=== PATIENT | male | born 1980 | race Caucasian/White ===

== ENCOUNTER 2025-01-04 11:31 | Outpatient (AMB) | payer BC, SELFPAY ==
--- NOTE | 2025-01-04 11:34 | MHC.PC.OV ---
Vital Signs 01/04/25 11:37 Height 6 ft 3 in Weight 241 lb BMI 30.1 BP 116/68 Blood Pressure Location Rt brachial Pulse 92 Pulse Source Pulse Oximeter Temp 97.7 F Pulse Oximetry (%) 96 Intake Visit Reasons: persistent dizziness Allergies No Known Allergies Allergy (Verified 01/04/25 12:10) Medication List - Last Reconciled 01/04/25 by Christine Barker PA-C fluoxetine 20 mg PO DAILY methylphenidate HCl LA (Ritalin LA) 20 mg PO DAILY terbinafine HCl 250 mg PO DAILY PFSH Medical History Obesity (BMI 30-39.9) Onychomycosis Obstructive sleep apnea Basal cell carcinoma IBS (irritable bowel syndrome) ADHD Anxiety disorder Right shoulder pain Neck pain Dizziness Surgical History History of colonoscopy (~01/13/19) History of appendectomy Questionnaire PHQ-9 Over the last 2 weeks, how often have you been bothered by any of the following problems? 1. Little interest or pleasure in doing things: not at all 2. Feeling down, depressed, or hopeless: not at all 3. Trouble falling or staying asleep, or sleeping too much: not at all 4. Feeling tired or having little energy: not at all 5. Poor appetite or overeating: not at all 6. Feeling bad about yourself - or that you are a failure or have let yourself or your family down: not at all 7. Trouble concentrating on things, such as reading the newspaper or watching television: not at all 8. Moving or speaking so slowly that other people could have noticed. Or the opposite - being so fidgety or restless that you have been moving around a lot more than usual: not at all 9. Thoughts that you would be better off or of hurting yourself in some way: not at all Total score: 0 Depression Screening Interpretation: Negative Depression Screening Done: Yes 44221 - PHQ-9 Billing: Yes Source: Developed by Drs. Eugene Hart, Mindy Welch, Dalton Fragoso and colleagues, with an educational mckenzie from [employer]. Thrive Questionnaire Date Thrive assessed: 01/04/25 I am a: Patient What is your living situation today?: I have a steady place to live Within the past 12 months, did the food you bought not last and you didn't have the money to get more?: Never true Within the past 12 months, did you worry whether your food would run out before you got money to buy more?: Never true Do you have trouble paying for medicines?: No Do you have trouble getting transportation to medical appointments?: No Do you have trouble paying your heating and electricity bill?: No Do you have trouble taking care of your child, family member or friend?: No Do you have trouble with day-to-day activities such as bathing, preparing meals, shopping, managing finances, etc.?: No Are you currently unemployed and looking for a job?: No Are you interested in more education?: No THRIVE Score: 0 AUDIT C Alcohol Use Questionnaire (AUDIT-C) 1. How often do you have a drink containing alcohol?: 2-4 times a month 2. How many drinks containing alcohol do you have on a typical day when you are drinking?: 1 or 2 3. How often do you have six or more drinks on one occasion?: Less than monthly Total Score: 3 Score Reviewed/Action Taken: No APARNA-7 AMB Questionnaire APARNA-7 Date APARNA - 7 assessed: 01/04/25 Feeling nervous, anxious, or on edge: 0 = Not at all Not being able to stop or control worryin = Not at all Worrying too much about different things: 0 = Not at all Trouble relaxin = Not at all Being so restless that it is hard to sit still: 0 = Not at all Becoming easily annoyed or irritable: 0 = Not at all Feeling afraid as if something awful might happen: 0 = Not at all Total APARNA-7 score (0-4 normal; 5-9 mild; 10-14 moderate; 15-21 severe): 0 Source: Developed by Drs. Eugene Hart, Mindy Welch, Dalton Fragoso and colleagues, with an educational mckenzie from [employer] APARNA-7 Assessment Billing APARNA-7 Assessment Tool: APARNA-7 Assessment 72135 Physical exam (Primary Care) Vital Signs: Last Vital Signs Temp 97.7 F 01/04/25 11:37 Pulse 92 01/04/25 11:37 BP 116/68 01/04/25 11:37 Pulse Ox 96 01/04/25 11:37 Care Plan Goal for BP management: <130/80 at Goal BMI result Body Mass Index 30.1 BMI Assessment/Plan discussion: High BMI High, discussed plan: lifestyle, weight reduction, dietary, physical activity and alcohol moderation PHQ-9: PHQ-9 Score PHQ-9: Total score 0 01/04/25 14:23 Depression Screening Interpretation: Negative Thrive Assessment: Date of Thrive Assessment Date Thrive assessed 01/04/25 01/04/25 11:53 Coding Level of Care Code Est Pt Level 4 (32310) Complex EM visit Add On G2211 Diagnoses Dizziness R42 Neck pain M54.2 Right shoulder pain M25.511 ADHD F90.9 Anxiety disorder F41.9 Obstructive sleep apnea G47.33 Basal cell carcinoma C44.91 IBS (irritable bowel syndrome) K58.9 Onychomycosis B35.1 Obesity (BMI 30-39.9) E66.9 Additional Codes APARNA-7 Assessment Billing - APARNA-7 Assessment Tool: APARNA-7 Assessment 67907 ([id number]) PHQ-9 - 15038 - PHQ-9 Billing: Yes ([id number]) Assessment & Plan Assessment & Plan (1) Dizziness: Code(s): R42 - Dizziness and giddiness Category: Medical Plan: Initiating CT brain scan and carotid ultrasound to assess intracranial or vascular causes. Suspected orthostatic hypotension, management includes fluid increase, potential use of meclizine, and checks for postural blood pressure change. Neurology follow-up scheduled. Will also schedule PT for possible vertigo. Patient noted to have a normal neuro exam at this time. No focal deficits are noted. Condition is chronic and stable continue to monitor and re-evaluate. (2) Neck pain: Code(s): M54.2 - Cervicalgia Category: Medical Plan: Will refer to PT for chronic neck and right shoulder pain/muscular strains. Condition is chronic and stable continue to monitor. (3) Right shoulder pain: Code(s): M25.511 - Pain in right shoulder Category: Medical Plan: Will refer to PT for chronic neck and right shoulder pain/muscular strains. Condition is chronic and stable continue to monitor. (4) ADHD: Code(s): F90.9 - Attention-deficit hyperactivity disorder, unspecified type Category: Medical Plan: Patient to continue Ritalin 20 mg daily. Condition is chronic and stable continue to monitor. (5) Anxiety disorder: Code(s): F41.9 - Anxiety disorder, unspecified Category: Medical Plan: Maintaining current anxiety/depression therapy with fluoxetine, stable psychiatric status acknowledged. (6) Obstructive sleep apnea: Comment: On CPAP Code(s): G47.33 - Obstructive sleep apnea (adult) (pediatric) Category: Medical Plan: Condition is chronic and stable patient to continue CPAP. (7) Basal cell carcinoma: Code(s): C44.91 - Basal cell carcinoma of skin, unspecified Category: Medical Plan: Condition is chronic and stable patient denies any skin related complaints at this time. (8) IBS (irritable bowel syndrome): Code(s): K58.9 - Irritable bowel syndrome, unspecified Category: Medical Plan: Condition is chronic and stable patient denies any GI related complaints at this time. (9) Onychomycosis: Code(s): B35.1 - Tinea unguium Category: Medical Plan: Continuing terbinafine therapy for another two months as planned. Review any adverse effects before finalizing treatment completion. (10) Obesity (BMI 30-39.9): Code(s): E66.9 - Obesity, unspecified Category: Medical Plan: Patient to improve his diet and exercise regimen. Condition is chronic and stable continue to monitor. Plan Plan Patient was informed and verbally consented to the use of an ambient scribe for clinic note documentation during this visit. 1. Psychogenic Disorder Anxiety/Depression Maintaining current anxiety/depression therapy with fluoxetine, stable psychiatric status acknowledged. 2. Dizziness Initiating CT brain scan and carotid ultrasound to assess intracranial or vascular causes. Suspected orthostatic hypotension, management includes fluid increase, potential use of meclizine, and checks for postural blood pressure change. Neurology follow-up scheduled. 3. Bursted Appendix History Of Reviewing past appendicitis surgical recovery with no acute concerns noted. 4. Onychomycosis Continuing terbinafine therapy for another two months as planned. Review any adverse effects before finalizing treatment completion. 5. Orthostatic Hypotension Suspected Monitoring blood pressure variations, considering dietary, fluid adjustments. Home blood pressure measures suggested. Further review post-evaluation to confirm orthostatic presentation. Discussion Notes I discussed the likely diagnosis of dizziness possibly linked to orthostatic hypotension with the patient, explaining the need for specific diagnostic imaging such as a brain CT and a carotid ultrasound. I advised on increasing fluid intake and potential use of meclizine for symptom relief. We explored physical therapy options as an ongoing intervention to manage dizziness, discussing the associated benefit of maneuvers aimed at positioning-based symptom limitation. Risks of inadequate intervention include continued dizziness and the potential impact on daily tasks and care responsibility for his child. Follow-ups will be scheduled two to three months hence, ensuring updates through planned diagnostic test reviews and neurological evaluations. I considered lifestyle factors such as fluid and salt intake relevant to assessing orthostatic effects, offering guidance on home monitoring with personal blood pressure devices to analyze positional blood pressure variations. Orders: Orders Complete Blood Count Auto Diff 01/04/25. - Encounter for general adult medical examination without abnormal findings Erythrocyte Sedimentation Rate 01/04/25. - Encounter for general adult medical examination without abnormal findings C Reactive Protein 01/04/25. - Encounter for general adult medical examination without abnormal findings Lipid Panel 01/04/25. - Encounter for general adult medical examination without abnormal findings Vitamin A 01/04/25. - Encounter for general adult medical examination without abnormal findings Vitamin B12 and Folate 01/04/25. - Encounter for general adult medical examination without abnormal findings Zinc 01/04/25. - Encounter for general adult medical examination without abnormal findings PSA,Total (Free>4and<10) 01/04/25 Z. - Encounter for general adult medical examination without abnormal findings CT head/brain wo IV con 01/04/25 R42 - Dizziness and giddiness US carotid duplex BI 01/04/25 R42 - Dizziness and giddiness PT Evaluation and Treatment 01/04/25 M25.511 - Pain in right shoulder, M54.2 - Cervicalgia, R42 - Dizziness and giddiness Comprehensive [place]. Panel Fast 01/04/25 Z. - Encounter for general adult medical examination without abnormal findings Hemoglobin A1c 01/04/25 Z. - Encounter for general adult medical examination without abnormal findings Magnesium 01/04/25 Z. - Encounter for general adult medical examination without abnormal findings Liver Panel 01/04/25. - Encounter for general adult medical examination without abnormal findings TSH reflex Free T4 01/04/25 Z00.00 - Encounter for general adult medical examination without abnormal findings Vitamin D 25-OH Total 01/04/25 Z00.00 - Encounter for general adult medical examination without abnormal findings Vitamin B1 01/04/25 Z00.00 - Encounter for general adult medical examination without abnormal findings Parathyroid Hormone Intact 01/04/25 Z00.00 - Encounter for general adult medical examination without abnormal findings Lyme IgG/IgM w/reflex to WB 01/04/25 Z00.00 - Encounter for general adult medical examination without abnormal findings Referrals Neurology Referral R42 - Dizziness and giddiness Patient Instructions: Patient Instructions - Increase daily fluid intake to potentially alleviate dizziness. - Use a home blood pressure monitor to check blood pressure when seated and standing; note any significant changes. - Plan for a CT scan and carotid ultrasound as discussed; await appointment calls. - Continue terbinafine therapy for toenail fungus as currently prescribed. - Maintain current fluoxetine regime for anxiety/depression. - Watch for any symptoms like persistent dizziness, visual changes, or weakness; call 911 if severe symptoms emerge. - Schedule a follow-up appointment for 2-3 months from now to reassess symptoms and outcomes from current tests and interventions. Scribe Plan - Not visible on output: History of Present Illness The patient is a 44-year-old male presenting with dizziness experienced upon standing. Symptoms have been present since late spring 2023, primarily manifesting as transient dizziness lasting approximately one minute after transitioning from a sitting or lying position. Factors such as prolonged inactivity and dehydration exacerbate these episodes, with caffeine noted to intensify the condition. The patient expresses concern over functional implications, notably in the context of supervising his young child, prompting current re-evaluation. Patient reports he discussed this with his prior PCP Dr. Archibald who referred him to ENT for a possible cause of dizziness with cerumen impactions. Despite initial earwax treatment, symptoms have persisted. The patient denies associated headache, weakness, visual alterations, or unilateral numbness. He manages psychogenic disturbance with fluoxetine and is treated for onychomycosis with terbinafine. A history of appendicitis with rupture in August 2022 was noted. Previous blood work indicated normal thyroid and sodium levels. Social History - with a saamy-zwuw-bej son. - Reports social stability with no immediate housing or employment issues affecting health. Review of Systems - Cardiovascular: Denies weakness, heart racing - Neurological: Denies headaches, changes in vision, numbness - Psychological: History of anxiety/depression, current stable treatment with fluoxetine Physical Exam Appearance: Alert. Oriented X3. No acute distress. Head: Normal external exam. Normocephalic. Atraumatic. Eyes: Pupils are equal, round, and reactive to light. Extraocular movements intact. Conjunctiva and sclera normal. Eyelids normal. Ears: External auditory canal normal. Tympanic membranes normal. Ears look good. Throat: Pharynx normal. Uvula midline. Moist mucous membranes. Neck: Normal inspection. Neck supple. Full range of motion. No adenopathy. Thyroid Normal. No meningeal signs. No neck mass noted. Sore neck noted. Cardiovascular: Normal heart rate and rhythm. Heart sound normal. No murmurs noted. Pulses normal throughout. Blood pressure approximately 130/80. Respiratory: No respiratory distress. Painless inspiration. Breath sounds normal. No wheezes/rales/rhonchi noted. Chest nontender. No accessory muscle usage noted or decreased air movement noted. Abdomen: Soft and nontender. Bowel sounds normal in all 4 quadrants. No distention noted. No organomegaly noted. No visible injury noted. Back: No costovertebral angle tenderness. Full range of motion noted. Skin: Skin warm and dry. Normal skin color. Normal skin turgor. No rashes/lesions/lacerations noted. Extremities: No lower extremity edema. Extremities exhibit normal range of motion. Extremities nontender. Neuro: Oriented X 3. No motor deficit. No sensory deficit. Reflexes normal. No dizziness noted when sitting up. Results Labs: 11/2024 - CBC normal - Chem- Normal - Sodium: Normal - Thyroid function: Normal - Vitamin D: Normal Tests and Diagnostics: - Detailed blood work in September 2024 showed normal results. - Plan for CT scan of the brain and carotid artery ultrasound
[2025-01-04 11:37] VITALS: BP 116/68; PULSE 92; TEMP 36.5; O2SAT 96; BMI 30.1
--- OUTSIDE RECORDS SUMMARY | 2025-01-04 13:08 | XMS_ITS | Patient Health Record ---
Author Organization [facility] Address [address] [place] [address] Care Team Providers Care Case Liner Name Role Phone Eugene Archibald MD Primary Care Provider Unavail able Abimbola Escalera Unavailable [phone] Allergies No Known Allergies Reason For Referral No Information Medications Medication SIG (Take, Route, Frequency, Duration) Notes Start Date End Date Status Ciclopirox Olamine 0.77 % 1 application to affected area Externally to feet Twice a day for 30 days Active LamISIL 250 MG 1 tablet Orally Once a day for 30 days Active busPIRone HCl 15 MG (Prior Auth#:[id number]) Oral for 30 Active Ritalin LA Active Ketoconazole 2 % 1 application Core Winder ally Once a day for 30 days Active buPROPion HCl ER (XL) 300 MG (Prior Auth#:[id number]) Oral for 60 Active Methylphenidate HCl ER (LA) 10 MG (Schedule II Drug) (Prior Auth#:[id number]) Oral for 30 Active Immunizations Vaccine Route Administration Date Status Comme nts COVID-19 Moderna Vaccine Unknown 02/10/2021 Administere d 1st Dose: 01/13/2021 Social History Tobacco Use: Social History Observation Description Date Details (start date - stop date) Never Smoker NA - NA Tobacco Use/Smoking Question Answer Notes Are you a: nonsmoker Additional Findings: Tobacco Non-User Current no n-smoker Alcohol Screen Question Answer Notes Did you have a drink containing alcohol in the p ast year? Yes Points 0 Interpretation Negative Tobacco use other than smoking: Question Answer Notes Are you an other tobacco user? No Plan Of Treatment Pending Test Test Name Order Date *Liver Function Test (LFT) 05/19/2021 *Liver Function Test (LFT) 07/21/2021 Insurance Providers Payer Name Payer Address Payer Phone Subscriber Number Group Number Insured Name Patient Relationship to Insured Coverage Start Date Coverage End Date [facility] [address] [place] [address] [id number] Self - patient is the insured Medical (General) History Medical History History ICD Code Anxiety Depression Chicken pox Surgical History Surgery Date(Month/Year) skin cancer removal 04/2018/04/2019
--- OUTSIDE RECORDS SUMMARY | 2025-01-04 13:08 | XMS_ITS | Encounter Summary ---
Author Organization [facility], Address [address] [place] [address] Phone Care Team Providers Care Stabilizing Machine Operator Name Role Phone Eugene Archibald DO Primary Care Provider Encounter Details Date Type Department Care Team (Late st Contact Info) Description 02/19/2023 Documentation Only [facility], - [address] [place] [phone] Eugene Archibald DO [address] [place], [place] Social History Tobacco Use Types Packs/Day Years Used Date Smoking Tobacco: Never Assessed Sex and Gender Information Value Date Recorded Sex Assigned at Not on file Legal Sex Male 2:20 PM EDT Gender Identity Not on file Sexual Orientation Not on file documented as of this encounter Plan of Treatment Not on file documented as of this encounter Visit Diagnoses Not on filedocumented in this encounter Care Teams Stabilizing Machine Operator Relationship Specialty Start Date End Date Eugene Archibald DO [address] [place] [address] PCP - General Internal Medicine 02/19/23 documented as of this encounter
--- OUTSIDE RECORDS SUMMARY | 2025-01-04 13:08 | XMS_ITS | Encounter Summary ---
Author Organization [facility], Address [address] [place] [address] Phone Care Team Providers Care Organizational Effectiveness Consultant Name Role Phone Eugene Archibald DO Primary Care Provider Encounter Details Date Type Department Care Team (Late st Contact Info) Description 02/19/2023 Documentation Only [facility], - [address] [facility] [address] [place] [phone] Willie Kumar MD [address] [facility] [address] [place] [phone] Social History Tobacco Use Types Packs/Day Years [...] on filedocumented in this encounter Care Teams Organizational Effectiveness Consultant Relationship Specialty Start Date End Date Eugene Archibald DO [address] [place] [address] PCP - General Internal Medicine 02/19/23 documented as of this encounter
--- OUTSIDE RECORDS SUMMARY | 2025-01-04 13:08 | XMS_ITS | Clinical Summary ---
Author Organization [facility], Address [address] [place] [address] Phone Care Team Providers Care Fitness Center Attendant Name Role Phone Eugene Archibald DO Primary Care Provider [phone] Allergies No known active allergies Medications tamsulosin (FLOMAX) 0.4 MG 24 hr capsule 06/05/2023 Activ e methylphenidate LA (RITALIN LA) 20 MG 24 hr capsule 06/03/2023 Active Probiotic Product (PROBIOTIC DAILY PO) Take by mouth Active Active Problems Problem Noted Date Diagnosed Date Hematuria 06/06/2023 Prostatitis 06/06/2023 Microscopic hematuria 06/06/2023 Immunizations Name Administration Dates Next Due H1N1 All Forms 11/16/2009 Influenza, Quadrivalent, Pre servative Free 07/15/2022,08/05/2021,08/05/2020,2018 Influenza, Quadrivalent, Wit h Preservative 08/12/2018 Influenza, Unspecified 12/04/2013 Moderna SARS-COV-2 08/27/2021,02/10/2021, 021 SARS-CoV-2, Unspecified 07/15/2022 Td 06/14/2011 Tdap 08/19/2021 Social History Tobacco Use Types Packs/Day Years Used Date Smoking Tobacco: Never Assessed Sex and Gender Information Value Date Recorded Sex Assigned at Not on file Legal Sex Male 2:20 PM EDT Gender Identity Not on file Sexual Orientation Not on file Plan of Treatment Health Maintenance Due Date Last Done Comments Pneumococcal Vaccine: Pediat rics (0 to 5 Years) and At-Risk Patients (6 to 64 Years) (1 of 2 - PCV) 1984 Hepatitis B Vaccine (1 of 3 - 19+ 3-dose series) 1997 Influenza Vaccine (#1) 2024 2, 08/05/2021, 08/05/2020, Additional history exists Insurance Care Teams Fitness Center Attendant Relationship Specialty Start Date End Date Eugene Archibald DO [address] [place] [address] PCP - General Internal Medicine 02/19/23
== END 2025-01-04 12:05 | disposition home or self-care (01) ==
LOC: HO.HMCSH 11:31
PROVIDERS: PCP Internal Medicine; Visit Provider Physician Assistant Medical
DX: R42 Dizziness and giddiness (principal); M54.2 Cervicalgia; M25.511 Pain in right shoulder; F90.9 Attention-deficit hyperactivity disorder, unspecified type; F41.9 Anxiety disorder, unspecified; G47.33 Obstructive sleep apnea (adult) (pediatric); C44.91 Basal cell carcinoma of skin, unspecified; K58.9 Irritable bowel syndrome, unspecified; B35.1 Tinea unguium; E66.9 Obesity, unspecified

== ENCOUNTER → 2025-01-04 11:31 | Outpatient (BNVA) | payer BC, SELFPAY | PROVIDERS: PCP Internal Medicine; Visit Provider Physician Assistant Medical | DX: R42 Dizziness and giddiness (principal); M54.2 Cervicalgia; M25.511 Pain in right shoulder; F90.9 Attention-deficit hyperactivity disorder, unspecified type; F41.9 Anxiety disorder, unspecified; G47.33 Obstructive sleep apnea (adult) (pediatric); C44.91 Basal cell carcinoma of skin, unspecified; K58.9 Irritable bowel syndrome, unspecified; B35.1 Tinea unguium; E66.9 Obesity, unspecified; Z68.30 Body mass index [BMI] 30.0-30.9, adult; Z79.899 Other long term (current) drug therapy; Z99.89 Dependence on other enabling machines and devices | CPT/HCPCS: 96127 ==

== ENCOUNTER 2025-02-12 15:31 | Outpatient (REF) | payer BC, SELFPAY ==
--- NOTE | ~2025-02-12 | US_ITS ---
EXAMINATION: US EXTRACRANIAL CAROTID DUPLEX, BILATERAL CLINICAL INFORMATION: Dizziness and giddiness COMPARISON: None available. TECHNIQUE: Real-time ultrasound and Doppler techniques (integrating B-mode 2-D vascular images, Doppler spectral analysis and color-flow Doppler imaging) were utilized to interrogate the extracranial carotid arteries, the vertebral arteries and proximal subclavian arteries bilaterally. The degree of stenosis is determined by criteria similar to NASCET. FINDINGS: Right Side: 1. There is no atherosclerotic plaque seen in the bifurcation/proximal ICA region. 2. The common carotid artery PSV proximally is 99 cm/s and distally 94 cm/s. 3. The proximal internal carotid artery velocities are 53 cm/s systolic and 19 cm/s diastolic. 4. The proximal external carotid artery PSV is 99 cm/s. 5. The vertebral artery shows antegrade flow. 6. The subclavian artery waveforms are normal. Left Side: 1. There is no atherosclerotic plaque seen in the bifurcation/proximal ICA region. 2. The common carotid artery PSV proximally is 86 cm/s and distally 92 cm/s. 3. The proximal internal carotid artery velocities are 124 cm/s systolic and 34 cm/s diastolic. 4. The proximal external carotid artery PSV is 59 cm/s. 5. The vertebral artery shows antegrade flow. 6. The subclavian artery waveforms are normal. US/US carotid duplex BI IMPRESSION: 1. RIGHT: No hemodynamically significant stenosis. 2. LEFT: No hemodynamically significant stenosis. 3. Antegrade flow in both vertebral arteries. Electronically signed by: Marcelo Mcbride MD 02/15/2025 07:09 AM EDT
--- OUTSIDE RECORDS SUMMARY | 2025-02-12 15:34 | XMS_ITS | Encounter Summary ---
Author Organization [facility], Address [address] [place] [address] Phone Care Team Providers Care Senior Accounting Analyst Name Role Phone Eugene Archibald DO Primary Care Provider Encounter Details Date Type Department Care Team (Late st Contact Info) Description 02/19/2023 Documentation Only [facility], - [place] [address] [place] [phone] Eugene Archibald DO [address] [place], [place] Social History Tobacco Use Types Packs/Day [...] on filedocumented in this encounter Care Teams Senior Accounting Analyst Relationship Specialty Start Date End Date Eugene Archibald DO [address] [place] [address] PCP - General Internal Medicine 02/19/23 documented as of this encounter
--- OUTSIDE RECORDS SUMMARY | 2025-02-12 15:34 | XMS_ITS | Encounter Summary ---
Author Organization [facility], Address [address] [place] [address] Phone Care Team Providers Care Rock Dust Sprayer Name Role Phone Eugene Archibald DO Primary Care Provider Encounter Details Date Type Department Care Team (Late st Contact Info) Description 02/19/2023 Documentation Only [facility], - [address] [facility] [address] [place] [phone] Willie Kumar MD [address] [facility] [address] [place] [phone] Social History Tobacco Use Types Packs/Day Years [...] on filedocumented in this encounter Care Teams Rock Dust Sprayer Relationship Specialty Start Date End Date Eugene Archibald DO [address] [place] [address] PCP - General Internal Medicine 02/19/23 documented as of this encounter
--- OUTSIDE RECORDS SUMMARY | 2025-02-12 15:34 | XMS_ITS | Clinical Summary ---
Author Organization [facility], Address [address] [place] [address] Phone Care Team Providers Care Director Of Human Resources Name Role Phone Eugene Archibald DO Primary Care Provider [phone] Allergies No known active allergies Medications tamsulosin (FLOMAX) 0.4 MG 24 hr capsule 06/05/2023 Activ e methylphenidate LA (RITALIN LA) 20 MG 24 hr capsule 06/03/2023 Active Probiotic Product (PROBIOTIC DAILY PO) Take by mouth Active Active Problems Problem Noted Date Diagnosed Date Hematuria 06/06/2023 Prostatitis 06/06/2023 Microscopic hematuria 06/06/2023 Immunizations Immunization Administration Dates Next Due H1N1 All Forms [...] Health Maintenance Due Date Last Done Comments Hepatitis B Vaccine (1 of 3 - 19+ 3-dose series) 1997 Pneumococcal Vaccine: Peds ( 0 to 5 Years) and At-Risk Patients (6 to 49 Years) (1 of 2 - PCV) 1997 Influenza Vaccine (Season Ended) 2025 07/15/2022, 08/05/2021, 08/05/2020, Additional history exists [place] [address] Care Teams Director Of Human Resources Relationship Specialty Start Date End Date Eugene Archibald DO [address] [place] [address] PCP - General Internal Medicine 02/19/23
== END 2025-02-12 15:32 | disposition home or self-care (01) ==
LOC: HO.US 15:31
PROVIDERS: PCP Internal Medicine; Visit Provider Physician Assistant Medical
DX: R42 Dizziness and giddiness (principal)
CPT/HCPCS: 93880

== ENCOUNTER → 2025-02-12 15:34 | Outpatient (BNV) | payer BC, SELFPAY | PROVIDERS: PCP Internal Medicine; Visit Provider Radiology Diagnostic Radiology | DX: R42 Dizziness and giddiness (principal) | CPT/HCPCS: 93880 ==